=== PATIENT | male | born 1950 | race Caucasian/White ===

== ENCOUNTER 2022-12-08 06:40 | Day surgery (SDC) | payer OTHER ==
[~2022-12-08] VITALS: Ht 175.3 cm; Wt 68.3 kg
[2022-12-08 07:07] VITALS: O2SAT 96
[2022-12-08] MEDS ORDERED: MEPERIDINE 100 MG INJ. 100 MG/ML VIAL ONE (08:28)
[2022-12-08] MEDS ORDERED: MIDAZOLAM HCL 5 MG/5 ML VIAL ONE (08:28)
[2022-12-08] MEDS ORDERED: SIMETHICONE 40 MG/0.6 ML ML ONE (08:28)
[2022-12-08 10:05] VITALS: BP_SYST 102; PULSE 65; RESP 18
== END 2022-12-08 10:00 | disposition home or self-care (01) ==
LOC: SDS 06:40 → SMU 07:10 → SDS 10:00
PROVIDERS: ATTEND Internal Medicine Gastroenterology
DX: R13.10 Dysphagia, unspecified (principal); K29.50 Unspecified chronic gastritis without bleeding; K31.7 Polyp of stomach and duodenum; Z86.010 Personal history of colon polyps; E11.9 Type 2 diabetes mellitus without complications; Z79.84 Long term (current) use of oral hypoglycemic drugs; Z79.899 Other long term (current) drug therapy
CPT/HCPCS: 43251; 87081; 82962; 36415; 43239; 88305; 88312; 88313; 99152; G0378; J2250; J2175

== ENCOUNTER 2022-12-22 06:24 | Day surgery (SDC) | payer OTHER ==
[~2022-12-22] VITALS: Ht 175.3 cm; Wt 70.3 kg
[2022-12-22 06:44] LABS: BASOPHILS % (AUTO) 0.7 % (0.0-2.0); EOSINOPHILS # (AUTO) 0.1 K/uL (0.0-0.4); EOSINOPHILS % (AUTO) 2.8 % (0.0-4.0); HEMATOCRIT 46.9 % (36-54); HEMOGLOBIN 15.5 g/dL (14.0-18.0); MEAN CORPUSCULAR HEMOGLOBIN 31 pg (27-31); MEAN CORPUSCULAR HGB CONC 33 % (32-36); MEAN CORPUSCULAR VOLUME 94 fL (79.0-98.0); MONOCYTES # (AUTO) 0.4 K/uL (0.0-1.0); MONOCYTES % (AUTO) 12.4 % (1.7-9.3); NEUTROPHILS # (AUTO) 1.9 K/uL (1.8-7.7); NEUTROPHILS % (AUTO) 54.1 % (40.0-70.0); PLATELET COUNT (AUTO) 96 K/uL (130-430); RED BLOOD CELL COUNT(AUTO) 4.97 MIL/uL (4.2-6.2); RED CELL DISTRIBUTION WIDTH 13.3 % (9.0-15.0); WHITE BLOOD COUNT (AUTO) 3.5 K/uL (4.8-10.8)
[2022-12-22 07:00] LABS: ALANINE AMINOTRANSFERASE 27 U/L (12-78); ALBUMIN 3.7 g/dL (3.4-4.8); ANION GAP 10 (5-15); ASPARTATE AMINOTRANSFERASE 13 U/L (10-37); CALCIUM 8.5 mg/dL (8.4-11.0); CHLORIDE 104 mmol/L (98-107); CREATININE 1.11 mg/dL (0.55-1.30); GLUCOSE 206 mg/dL (74-106); TOTAL BILIRUBIN 0.3 mg/dL (0.0-1.0); UREA NITROGEN, BLOOD 14 mg/dL (8-21)
[2022-12-22] MEDS ORDERED: ceFAZolin SODIUM 2 GM in NS 100 ML IV ONE (07:00)
[2022-12-22 07:23] VITALS: O2SAT 99
[2022-12-22] MEDS ORDERED: SUGAMMADEX SODIUM 200 MG/2 ML VIAL IV ONE (07:54)
[2022-12-22] MEDS ORDERED: ROCURONIUM BROMIDE 10 MG/ML (ZEMURON) ONE (07:54)
[2022-12-22] MEDS ORDERED: BUPIVACAINE /PF 0.25% 30 ML VIAL INJ ONE (07:54)
[2022-12-22] MEDS ORDERED: SEVOFLURANE 15 MIN GAS INH ONE (07:54)
[2022-12-22] MEDS ORDERED: ONDANSETRON HCL 4 MG/2 ML VIAL ONE (07:54)
[2022-12-22] MEDS ORDERED: SUCCINYLCHOLINE CHLORIDE 20 MG/ML(QUELICIN) ONE (07:54)
[2022-12-22] MEDS ORDERED: PROPOFOL 200MG/ 20ML VIAL (DIPRIVAN) IV ONE (07:54)
[2022-12-22 08:45] LABS: INR 1.1 (0.80-1.20)
[2022-12-22] MEDS ORDERED: HYDROmorphone 1 MG/ML INJ. CARTRIDGE IVP PRN (10:15)
[2022-12-22] MEDS ORDERED: METOCLOPRAMIDE HCL 10 MG/2 ML VIAL IVP PRN (10:15)
[2022-12-22] MEDS ORDERED: IBUPROFEN 600 MG TABLET PO ONE (10:15)
[2022-12-22] MEDS ORDERED: ONDANSETRON HCL 4 MG/2 ML VIAL IVP PRN (10:15)
[2022-12-22] MEDS ORDERED: KETOROLAC TROMETHAMINE 30 MG VIAL IVP PRN (10:15)
[2022-12-22] MEDS ORDERED: HYDROmorphone 1 MG/ML INJ. CARTRIDGE ONE (11:56)
[2022-12-22 14:35] VITALS: BP_SYST 120; PULSE 69; RESP 17
== END 2022-12-22 14:12 | disposition home or self-care (01) ==
LOC: SDS 06:24 → SMU 06:26 → SDS 14:12
PROVIDERS: ATTEND Surgery
DX: K40.20 Bilateral inguinal hernia, without obstruction or gangrene, not specified as recurrent (principal); K42.9 Umbilical hernia without obstruction or gangrene; K21.9 Gastro-esophageal reflux disease without esophagitis; I13.0 Hypertensive heart and chronic kidney disease with heart failure and stage 1 through stage 4 chronic kidney disease, or unspecified chronic kidney disease; E11.22 Type 2 diabetes mellitus with diabetic chronic kidney disease; I50.9 Heart failure, unspecified; N18.1 Chronic kidney disease, stage 1; Z79.01 Long term (current) use of anticoagulants; Z95.810 Presence of automatic (implantable) cardiac defibrillator; Z79.899 Other long term (current) drug therapy
CPT/HCPCS: 87081; 49650; 49591; 80053; 85025; 85610; 85730; 36415; 88302; J3490 ×2; J2405; J2704; J0330; J1170; C1727; C1781 ×3; S2900